=== PATIENT | female | born 1995 | race Caucasian/White ===

== ENCOUNTER 2023-05-29 11:36 | Outpatient (CLI) | payer OTHER | END 2023-05-29 11:37 | disposition home or self-care (01) | LOC: NAV RAD 11:36 | PROVIDERS: ATTEND Family Medicine | DX: M42.00 Juvenile osteochondrosis of spine, site unspecified (principal); M47.816 Spondylosis without myelopathy or radiculopathy, lumbar region; Z98.890 Other specified postprocedural states | CPT/HCPCS: 72100 ==